=== PATIENT | female | born 2000 | race Caucasian/White ===

== ENCOUNTER 2024-05-01 17:02 | Emergency (ER) | payer OTHER, MEDICAID ==
[~2024-05-01] VITALS: Ht 165.1 cm; Wt 68.0 kg
[2024-05-01] MEDS: ketorolac trometh 15mg/ml vial 15 MG/ML ML IM ONE (18:32)
[2024-05-01 18:54] VITALS: BP 132/74; PULSE 90; RESP 18; TEMP 98.6; O2SAT 99
== END 2024-05-01 18:55 | disposition home or self-care (01) ==
LOC: ER 17:03
DX: S19.9XXA Unspecified injury of neck, initial encounter (principal); S09.90XA Unspecified injury of head, initial encounter; M54.50 Low back pain, unspecified; M54.2 Cervicalgia; V89.2XXA Person injured in unspecified motor-vehicle accident, traffic, initial encounter; Y93.89 Activity, other specified; Y92.89 Other specified places as the place of occurrence of the external cause; Y99.8 Other external cause status
CPT/HCPCS: 96372; 99283; J1885